=== PATIENT | male | born 1990 ===

== ENCOUNTER 2018-09-18 15:08 | Inpatient (IN) | payer OTHER ==
[2018-09-18] MEDS ORDERED: BUPIVACAINE 0.5% PF 10 ML VIAL ONE (15:59)
--- NOTE | 2018-09-18 16:01 | RAD REPORT ---
EXAM DESCRIPTION: RAD - Hand Left 3 View - 09/18/2018 3:55 pm CLINICAL HISTORY: Blunt force trauma left thumb COMPARISON: None. FINDINGS: And amputation of the soft tissues and finger nail at the tip of the left thumb. The tuft of the first distal phalanx is exposed but no bone amputation. No retained foreign body. IMPRESSION: Soft tissue amputation at the tip of the left thumb.
[2018-09-18] MEDS ORDERED: WATER FOR INJ,STERILE 10 ML ONE (16:42)
[2018-09-18] MEDS ORDERED: CEFAZOLIN SODIUM 1 GM/VIAL ONE (16:42)
[2018-09-18] MEDS ORDERED: TETANUS & DIPHTHERIA TOX,ADULT 0.5 ML VIAL ONE (16:49)
--- NOTE | 2018-09-18 17:36 | EDPHYS ---
Physician Documentation [facility] Name: Jose Long III Age: 27 yrs Sex: Male : 1990 Arrival Date: 09/18/2018 Time: 15:10 Bed 14 Private MD: ED Physician Ian Payan HPI: 09/18 15:32 This 27 yrs old Male presents to ER via Ambulatory with complaints of Thumb Injury. [facility] 15:32 The patient or guardian reports injury, pain. Onset: The symptoms/episode jmm began/occurred acutely, just prior to arrival. This is a 27 year old male with no chronic medical conditions that presents to the ED with complaints of pain to his left thumb. 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 Denies other injury. . Historical: - Allergies: 15:12 No Known Allergies; ch - Home Meds: 15:12 None [Active]; ch - PMHx: 15:12 None; ch - PSHx: 15:12 Tonsillectomy; ch - Immunization history:: Adult Immunizations up to date. - Social history:: Smoking status: Patient/guardian denies using tobacco. - Ebola Screening: : Patient negative for fever greater than or equal to 101.5 degrees Fahrenheit, and additional compatible Ebola Virus Disease symptoms Patient denies exposure to infectious person Patient denies travel to an Ebola-affected area in the 21 days before illness onset No symptoms or risks identified at this time. ROS: 15:32 Constitutional: Negative for fever, chills, and weight loss, Cardiovascular: Negative jmm for chest pain, palpitations, and edema, Respiratory: Negative for shortness of breath, cough, wheezing, and pleuritic chest pain. 15:32 MS/extremity: Positive for injury or acute deformity, pain. 15:32 All other systems are negative. Exam: 15:32 Constitutional: This is a well developed, well nourished patient who is awake, alert, jmm and in no acute distress. Head/Face: atraumatic. Eyes: EOMI, no conjunctival erythema appreciated ENT: Moist Mucus Membranes Neck: Trachea midline, Supple Chest/axilla: Normal chest wall appearance and motion. Cardiovascular: Regular rate and rhythm. No edema appreciated Respiratory: Normal respirations, no respiratory distress appreciated Abdomen/GI: Non distended, soft Back: Normal ROM 15:32 Musculoskeletal/extremity: amputation noted obliquely through the left distal thumb, through the nail. Mild bleeding noted. Sensation is intact. . 15:32 Skin: amputations noted to the left distal thumb. 15:32 Neuro: Orientation: is normal, Mentation: is normal, Memory: is normal. 15:32 Psych: Behavior/mood is pleasant, cooperative. Vital Signs: 15:12 Weight 99.79 kg; Height 6 ft. 5 in. (195.58 cm); Pain 8/10; ch 16:29 BP 120 / 68; Pulse 68; Resp 17; Temp 97.6(TE); Pulse Ox 99% ; mh5 17:30 BP 111 / 68; Pulse 86; Resp 18; Temp 97.8(O); Pulse Ox 98% on R/A; aj1 19:15 BP 122 / 67; Pulse 73; Resp 16; Pulse Ox 99% on R/A; jb4 20:02 BP 129 / 72; Pulse 71; Resp 16; Temp 98.7(O); Pulse Ox 100% on R/A; jb4 15:12 Body Mass Index 26.09 (99.79 kg, 195.58 cm) ch MDM: 15:32 Patient medically screened. [facility] 17:33 Data reviewed: vital signs, nurses notes. Counseling: I had a detailed discussion with [facility] the patient and/or guardian regarding: the historical points, exam findings, and any diagnostic results supporting the discharge/admit diagnosis, lab results, radiology results, the need for further work-up and treatment in the hospital. 17:33 ED course: [facility] is at capacity and unable to take patient. I discussed the patient with [facility] Dr. Best whom accepted admission. I discussed the patient with Dr. Sebastian whom will consult on admission. . 09/18 15:35 Order name: Hand Left 3 View XRAY; Complete Time: 16:07 [facility] 09/18 17:55 Order name: CONS Physician Consult EDLA 09/18 17:55 Order name: Regular EDMS Administered Medications: 15:50 Drug: Marcaine (0.5 %) 10 ml {Note: adminstered by PA. Hans} Volume: 10 ml; aj1 Route: Infiltration; 16:47 Drug: Ancef 1 grams Route: IM; Site: left gluteus; aj1 16:48 Drug: Tetanus-Diphtheria Toxoid Adult 0.5 ml {Purification Supervisor: [employer]. Exp: aj1 07/11/2020. Lot #: [id number]. } Route: IM; Site: right deltoid; Disposition: 09/19 07:02 Co-signature as Attending Physician, Ian Payan MD I agree with the assessment and kdr plan of care. Disposition: 09/18/18 17:36 Hospitalization ordered by Pavel Kaplan for Observation. Preliminary diagnosis is Traumatic transphalangeal amputation of thumb. - Bed requested for Telemetry/MedSurg (observation). - Status is Observation. jb4 - Condition is Stable. - Problem is new. - Symptoms are unchanged. UTI on Admission? No Signatures: Dispatcher [employer] EDMS Flori Vitale Christina, RN RN Mary Dela Cruz RN RN aj1 Ian Payan MD MD [facility] Azael Vincent PA PA [facility] Maykel Dempsey, CLAUDINE RN jb4 Corrections: (The following items were deleted from the chart) 09/18 18:07 17:36 Hospitalization Ordered by Pavel Kaplan MD for Observation. Preliminary bd diagnosis is Traumatic transphalangeal amputation of thumb. Bed requested for Telemetry/MedSurg (observation). Status is Observation. Condition is Stable. Problem is new. Symptoms are unchanged. UTI on Admission? No. [facility] 20:32 18:07 09/18/2018 17:36 Hospitalization Ordered by Pavel Kaplan MD for Observation. jb4 Preliminary diagnosis is Traumatic transphalangeal amputation of thumb. Bed requested for Telemetry/MedSurg (observation). Status is Observation. Condition is Stable. Problem is new. Symptoms are unchanged. UTI on Admission? No. bd
--- NOTE | 2018-09-18 17:36 | ER ---
Nurse's Notes [facility] Name: Jose Long III Age: 27 yrs Sex: Male : 1990 Arrival Date: 09/18/2018 Time: 15:10 Bed 14 Private MD: Diagnosis: Traumatic transphalangeal amputation of thumb Presentation: 09/18 15:10 Presenting complaint: Patient states: thumb tip caught in a cotton machine, tip ch sliced/pulled off. occurred around 1420. tip brought in with pt. pt from correctional facility. Transition of care: patient was not received from another setting of care. Onset of symptoms was September 18, 2018 at 14:20. Risk Assessment: Do you want to hurt yourself or someone else? Patient reports no desire to harm self or others. Initial Sepsis Screen: Does the patient meet any 2 criteria? No. Patient's initial sepsis screen is negative. Does the patient have a suspected source of infection? No. Patient's initial sepsis screen is negative. Care prior to arrival: None. 15:10 Method Of Arrival: Ambulatory 15:10 Acuity: TOR 3 ch Triage Assessment: 15:12 General: Appears in no apparent distress. uncomfortable, Behavior is calm, cooperative, ch appropriate for age. Pain: Complains of pain in left thumb, dorsal aspect of distal phalanx of left thumb, palmar aspect of distal phalanx of left thumb and left thumbnail Pain currently is 8 out of 10 on a pain scale. Pain began suddenly. Neuro: No deficits noted. Respiratory: No deficits noted. Musculoskeletal: Amputation of pt has approx .75 cm of thumb removed cleanly. bleeding controlled. does extend into nail bed. Injury Description: Amputation sustained to left thumb and left thumbnail is complete, was sustained 1-2 hours ago. Historical: - Allergies: 15:12 No Known Allergies; ch - Home Meds: 15:12 None [Active]; ch - PMHx: 15:12 None; ch - PSHx: 15:12 Tonsillectomy; ch - Immunization history:: Adult Immunizations up to date. - Social history:: Smoking status: Patient/guardian denies using tobacco. - Ebola Screening: : Patient negative for fever greater than or equal to 101.5 degrees Fahrenheit, and additional compatible Ebola Virus Disease symptoms Patient denies exposure to infectious person Patient denies travel to an Ebola-affected area in the 21 days before illness onset No symptoms or risks identified at this time. Screenin:33 Abuse screen: Denies threats or abuse. Denies injuries from another. Nutritional aj1 screening: No deficits noted. Tuberculosis screening: No symptoms or risk factors identified. Assessment: 15:33 General: Appears in no apparent distress. uncomfortable, Behavior is calm, cooperative, aj1 appropriate for age. Pain: Complains of pain in left thumb. Neuro: Level of Consciousness is awake, alert, obeys commands, Oriented to person, place, time, situation. Cardiovascular: Patient's skin is warm and dry. Respiratory: Airway is patent Respiratory effort is even, unlabored, Respiratory pattern is regular, symmetrical. GI: No signs and/or symptoms were reported involving the gastrointestinal system. : No signs and/or symptoms were reported regarding the genitourinary system. EENT: No signs and/or symptoms were reported regarding the EENT system. Derm: Skin is pink, warm \T\ dry. Musculoskeletal: Range of motion: limited in IP of left thumb. Injury Description: Amputation sustained to palmar aspect of distal phalanx of left thumb and dorsal aspect of distal phalanx of left thumb is partial. 16:30 Reassessment: Patient appears in no apparent distress at this time. No changes from aj1 previously documented assessment. Patient and/or family updated on plan of care and expected duration. Pain level reassessed. Patient is alert, oriented x 3, equal unlabored respirations, skin warm/dry/pink. 17:30 Reassessment: Patient appears in no apparent distress at this time. No changes from aj1 previously documented assessment. Patient and/or family updated on plan of care and expected duration. Pain level reassessed. Patient is alert, oriented x 3, equal unlabored respirations, skin warm/dry/pink. 17:53 Reassessment: Patient will have surgery tomorrow, and will be NPO after midnight, aj1 patient may eat at this time. Patient provided a meal tray. 19:10 Reassessment: Patient appears in no apparent distress at this time. Patient and/or jb4 family updated on plan of care and expected duration. Pain level reassessed. Patient is alert, oriented x 3, equal unlabored respirations, skin warm/dry/pink. 19:10 Reassessment: Patient appears in no apparent distress at this time. Patient and/or jb4 family updated on plan of care and expected duration. Pain level reassessed. Patient is alert, oriented x 3, equal unlabored respirations, skin warm/dry/pink. 20:00 Reassessment: Patient appears in no apparent distress at this time. Patient and/or jb4 family updated on plan of care and expected duration. Pain level reassessed. Patient is alert, oriented x 3, equal unlabored respirations, skin warm/dry/pink. Vital Signs: 15:12 Weight 99.79 kg; Height 6 ft. 5 in. (195.58 cm); Pain 8/10; ch 16:29 BP 120 / 68; Pulse 68; Resp 17; Temp 97.6(TE); Pulse Ox 99% ; mh5 17:30 BP 111 / 68; Pulse 86; Resp 18; Temp 97.8(O); Pulse Ox 98% on R/A; aj1 19:15 BP 122 / 67; Pulse 73; Resp 16; Pulse Ox 99% on R/A; jb4 20:02 BP 129 / 72; Pulse 71; Resp 16; Temp 98.7(O); Pulse Ox 100% on R/A; jb4 15:12 Body Mass Index 26.09 (99.79 kg, 195.58 cm) ED Course: 15:10 Patient arrived in ED. 15:12 Triage completed. 15:12 Arm band placed on left wrist. Patient placed in an exam room, on a stretcher, on pulse ch oximetry. 15:18 Azael Vincent PA is PHCP. [facility] 15:18 Ian Payan MD is Attending Physician. jmm 15:33 Mary Rose, RN is Primary Nurse. aj1 15:33 Patient has correct armband on for positive identification. aj1 15:33 No provider procedures requiring assistance completed. aj1 15:55 Hand Left 3 View XRAY In Process Unspecified. EDMS 17:25 attempted transfer to [facility] care, pt was denied due to no beds at this time, was bd given authorization to admit to [facility] from [facility]. authorization number [id number]. 17:35 Pavel Kaplan MD is Hospitalizing Provider. [facility] 19:29 Inserted saline lock: 20 gauge in right antecubital area, using aseptic technique. ar5 20:02 Patient admitted, IV remains in place. jb4 20:32 Primary Nurse role handed off by Mary Rose, CLAUDINE jb 20:32 Maykel Dempsey, CLAUDINE is Primary Nurse. jb4 Administered Medications: 15:50 Drug: Marcaine (0.5 %) 10 ml {Note: adminstered by VENU Maxwell.} Volume: 10 ml; aj1 Route: Infiltration; 16:47 Drug: Ancef 1 grams Route: IM; Site: left gluteus; aj1 16:48 Drug: Tetanus-Diphtheria Toxoid Adult 0.5 ml {Awning Spreader: [employer]. Exp: aj1 07/11/2020. Lot #: [id number]. } Route: IM; Site: right deltoid; Outcome: 17:36 Decision to Hospitalize by Provider. [facility] 20:15 Admitted to Med/surg accompanied by tech, via wheelchair, room 213, with chart, Report jb4 called to CLAUDINE Colin 20:15 Condition: stable 20:15 Discharge instructions given to patient, police, Instructed on the need for admit, Demonstrated understanding of instructions. 20:32 Patient left the ED. alessandro Signatures: Dispatcher [employer] EDMS Flori Vitale Christina, RN Mary Lutz ch, RN RN aj1 Mickail, Joel, PA PA jmm Bryson, James, RN RN jb4 Martinez, Maria Yane Curry [facility]
[2018-09-18] MEDS ORDERED: ACETAMINOPHEN 500 MG TAB PO PRN (17:51)
[2018-09-18] MEDS ORDERED: ONDANSETRON 4 MG/2 ML VIAL IV PRN (17:51)
--- NOTE | 2018-09-18 17:51 | P.CNS ---
Date of Consult: 09/18/18 Reason for Consult: Medical mgmt Requesting Physician: Pavel Kaplan Chief Complaint: Blunt trauma to the Hand History of Present Illness: 27 y.o M who is inmate who comes in the hospital after having traumatic Thumb injury for the left hand. 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 Pt states that the machine sliced off the tip of the thumb at around 1420. Pt was brought to the hospital from the correctional facility along with the Tip. Pt denies having any fever, chills, nausea, vomitting or any other symptoms. Denies Smoking now, Alcohol and drug abuse. In the ER Pt was seen and decision was made to admit the patient under plastic surgery. Medicine team was consulted for medical and pain mgmt. Home medications list reviewed: Yes - Past Medical/Surgical History Diabetic: No Past Medical History: Reviewed- Non-Contributory Past Surgical History: Reviewed- Non-Contributory - Social History Counseled patient to stop smoking for: more than 10 minutes Smoking therapy provided: Yes Patient receptive to therapy: Yes Alcohol use: No CD- Drugs: No Caffeine use: No Review of Systems 10-point ROS is otherwise unremarkable Physical Examination General: Alert, In no apparent distress HEENT: Atraumatic, PERRLA, Mucous membr. moist/pink, EOMI, Sclerae nonicteric Neck: Supple, 2+ carotid pulse no bruit, No LAD, Without JVD or thyroid abnormality Respiratory: Clear to auscultation bilaterally, Normal air movement Cardiovascular: Regular rate/rhythm, Normal S1 S2 Gastrointestinal: Normal bowel sounds, No tenderness Musculoskeletal: Erythema, Tenderness, Warmth, Other (Blunt trauma to the hand with open cut. ) Integumentary: Skin breakdown Neurological: Normal gait, Normal speech, Normal tone, Normal affect Lymphatics: No axilla or inguinal lymphadenopathy - Problems (1) Traumatic amputation of left thumb Current Visit: Yes Status: Acute Plan: Complete Transpharyngel Traumatic Amputation of the left thumb at the distal end. -Plastic Surgery primary on the case -NPO after midnight for OR procedure marine -pain mgmt with IV pain medication Qualifiers: Encounter type: initial encounter Qualified Code(s): S68.012A - Complete traumatic metacarpophalangeal amputation of left thumb, initial encounter Critical Care: No
[2018-09-18] MEDS: NA CHLORIDE 0.9% 1,000 ML IV SCH (20:49)
[2018-09-19] MEDS: CEFAZOLIN/SWI 1gm 1 GM/10 ML SYR IVP SCH ×2 (00:28→06:12)
[2018-09-19] MEDS: MORPHINE 4 MG/ML SYR IV PRN ×2 (02:45→13:31)
[2018-09-19 05:51] LABS: Absolute Lymphocytes (CBC) 1.7 K/uL (0.7-4.9); Absolute Monocytes 0.6 K/uL (0.1-1.3); Absolute Neutrophil 2.8 K/uL (1.8-8.0); Eosinophils % 2.2 % (0-4.4); Hematocrit 41.7 % (39.6-49.0); Lymphocytes % 32.2 % (15.3-44.8); MPV 8.7 fL (7.6-11.3); Monocytes % 11.9 % (3.3-12.3); RBC Red Blood Cell Count 4.83 M/uL (4.33-5.43)
[2018-09-19 05:59] LABS: BUN Blood Urea Nitrogen 17 mg/dL (7-18); Bicarbonate 26 mmol/L (21-32); Glucose Level 86 mg/dL (74-106); Potassium 4.2 mmol/L (3.5-5.1); Sodium Level 140 mmol/L (136-145)
[2018-09-19] MEDS: NA CHLORIDE 0.9% 1,000 ML IV SCH ×2 (06:12→11:35)
[2018-09-19] MEDS ORDERED: MIDAZOLAM HCL 2 MG/2 ML INJ ONE ×2 (08:59→10:58)
[2018-09-19] MEDS ORDERED: FENTANYL CITR 100 MCG/2 ML ONE (08:59)
[2018-09-19] MEDS ORDERED: PROPOFOL 200 MG/20 ML VIAL IV ONE (08:59)
[2018-09-19] MEDS ORDERED: LIDOCAINE 1% MPF 5 ML VIAL ONE (08:59)
[2018-09-19] MEDS ORDERED: KETOROLAC 30 MG/ML INJ ONE (09:28)
[2018-09-19] MEDS ORDERED: ONDANSETRON 4 MG/2 ML VIAL ONE (09:31)
[2018-09-19] MEDS: HYDROMORPHONE HCL 1 MG/ML INJ ONE ×6 (09:52→10:33)
[2018-09-19] MEDS ORDERED: CODEINE 30MG/APAP 300MG TAB PO PRN (10:12)
[2018-09-19] MEDS ORDERED: CEPHALEXIN 500 MG CAP PO SCH (12:00)
--- NOTE | 2018-09-19 14:00 | P.PN ---
Subjective Date of Service: 09/19/18 Chief Complaint: Blunt trauma to the Hand Subjective: Tolerating diet, Improving, Doing well Review of Systems 10-point ROS is otherwise unremarkable Physical Examination - Vital Signs Temperature: 97.9 F Blood Pressure: 129/66 Pulse: 58 Respirations: 18 Pulse Ox (%): 99 - Physical Exam General: Alert, In no apparent distress HEENT: Atraumatic, PERRLA, EOMI Neck: Supple, JVD not distended Respiratory: Clear to auscultation bilaterally, Normal air movement Cardiovascular: Regular rate/rhythm, Normal S1 S2 Gastrointestinal: Normal bowel sounds, No tenderness Musculoskeletal: Other (Left arm in a Yung bandage. Minimal drainage noted) Integumentary: No rashes Neurological: Normal speech, Normal tone, Normal affect Lymphatics: No axilla or inguinal lymphadenopathy - Studies Medications List Reviewed: Yes Assessment And Plan - Current Problems (Diagnosis) (1) Traumatic amputation of left thumb Current Visit: Yes Status: Acute Plan: Complete Transpharyngel Traumatic Amputation of the left thumb at the distal end. -status post repair with plastic surgery. -primary team planning to discharge patient today -will sign off the consult Qualifiers: Encounter type: initial encounter Qualified Code(s): S68.012A - Complete traumatic metacarpophalangeal amputation of left thumb, initial encounter Discharge Plan: Home Plan to discharge in: 24 Hours - Code Status/Comfort Care Code Status Assessed: Yes Critical Care: No
--- NOTE | 2018-09-19 21:02 | HP ---
Date of Admission: 09/18/2018 History Of Present Illness: A 27-year-old, white male, right-hand dominant, crushed his left thumb o n trailer hitch. Presented to the ER. Tip cast was given. Past Medical History: No medical problems. Social History: Does not smoke. Does not drink. Medications: No medications. Allergies: NO ALLERGIES. Physical Examination: General: He is 6 feet 5 inches, 250 pounds. Extremities: Tip amputation including distal to the nail bed with bone exposed. Assessment: Tip amputation. Plan: Flap closure. ELLIOTT/GIULIANA Voice ID: [id number]
--- NOTE | 2018-09-20 00:03 | DS ---
Date of Discharge: 09/19/2018 A 27-year-old, white male, [id number], crushed off the tip of the left thumb on trailer hitc h. Tip cast was given. He has had previous surgery of tonsils. No medical problems. Does not smok e. Does not drink. No meds. No allergies. He is 6 feet and 5 inches, 250 pounds. He has had new sverse tip amputation of the left thumb over the nail bed distal tip and bone exposed. He was taken to surgery, underwent debridement and flap closure, discharged on Tylenol No. 3 one tab p.o. q.4 hour s p.r.n. pain and Keflex 500 mg p.o. q.6 hours. He will return to clinic on following Sunday at 2 o'clock at [place]. JANNET Voice ID: [id number] Report ID: [id number]
--- NOTE | 2018-09-23 09:23 | OP ---
Surgeon: Pavel Kaplan MD Preoperative Diagnosis: Tip amputation of the left thumb. Postoperative Diagnosis: Tip amputation of the left thumb. Procedures Performed: Tip amputation with debridement of skin, subcutaneous tissue, and bone with fl ap closure. Anesthesia: General. Procedure In Detail: After satisfactory induction of general anesthesia, left hand was prepped with Betadine scrub, Betadine paint. Dry sterile drapes were applied in the usual manner. The arm was el evated, exsanguinated with an Esmarch. Tourniquet was inflated to 250 mmHg. Hand was placed in Rota verito table. A periosteal elevator was used to remove nail plate and then the nail bed was debrided wi th a scalpel. The bone was cut with a bone cutter, then filed, and then a V-Y flap outlined. The wo und was jet lavaged, irrigated with 1 L of dilute Betadine solution. Flap was advanced, closed with 4-0 Prolene, and tourniquet released. Dressing consisted of Xeroform, 2 inch Thanh. The patient yusef erated the procedure well and returned to Recovery. ELLIOTT/GIULIANA Voice ID: [id number] Report ID: [id number]
== END 2018-09-19 14:28 | DRG 909 ==
LOC: ER 15:08 → ERHOLD 17:49 → 2ND 19:50
PROVIDERS: ADMIT Specialist; ATTEND Specialist
PROC: 0PBS0ZZ Excision of Left Thumb Phalanx, Open Approach (ICD-10-PCS; principal; 2018-09-19 09:00)
DX: S68.512A Complete traumatic transphalangeal amputation of left thumb, initial encounter (principal); W30.89XA Contact with other specified agricultural machinery, initial encounter; Y93.89 Activity, other specified; Y92.148 Other place in prison as the place of occurrence of the external cause; Y99.0 Civilian activity done for income or pay; Z23 Encounter for immunization
CPT/HCPCS: 36415; 80048; 85025; 88304; 90471; 90714; 96365; 96367; 96372; 99285; J0690; J1170; J2250; J2405; J2704; J3010; J7030